=== PATIENT | female | born 2000 | race Caucasian/White ===

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

== ENCOUNTER 2020-08-20 16:08 | Emergency (ER) | payer MEDICAID ==
[~2020-08-20] VITALS: Ht 157.5 cm; Wt 61.8 kg
[~2020-08-20 16:08] MED LIST changes: -CEPH500C5 PO; +CLIN150C8 PO
[2020-08-20 16:51] VITALS: BP_SYST 126
[2020-08-20] MEDS ORDERED: CEPH500C5 PO (17:08)
[2020-08-20] MEDS ORDERED: SULF1TAB49 PO (17:08)
[2020-08-20] MEDS ORDERED: L.AC1CAP6 PO (17:08)
== END 2020-08-20 17:18 | disposition home or self-care (01) ==
LOC: ER 16:08
DX: I89.1 Lymphangitis (principal); F15.10 Other stimulant abuse, uncomplicated; Z88.2 Allergy status to sulfonamides; Z88.8 Allergy status to other drugs, medicaments and biological substances; Z88.1 Allergy status to other antibiotic agents; Z91.010 Allergy to peanuts
CPT/HCPCS: 99283

== ENCOUNTER 2021-05-09 22:57 | Emergency (ER) | payer MEDICAID ==
[~2021-05-09] VITALS: Ht 157.5 cm; Wt 59.1 kg
[~2021-05-09 22:57] MED LIST changes: +CEPH-585 PO; +L.AC1CAP6 PO
[2021-05-09 23:01] VITALS: BP 125/78
[2021-05-09] MEDS ORDERED: SULF1TAB49 PO (23:29)
== END 2021-05-09 23:36 | disposition home or self-care (01) ==
LOC: ER 22:57
DX: L73.2 Hidradenitis suppurativa (principal); M79.621 Pain in right upper arm; F15.90 Other stimulant use, unspecified, uncomplicated; Z91.010 Allergy to peanuts; Z79.2 Long term (current) use of antibiotics; Z79.899 Other long term (current) drug therapy
CPT/HCPCS: 99283

== ENCOUNTER 2021-06-02 16:51 | Emergency (ER) | payer MEDICAID ==
[~2021-06-02] VITALS: Ht 157.5 cm; Wt 59.1 kg
[2021-06-02 16:57] VITALS: BP 130/81
== END 2021-06-02 17:33 | disposition home or self-care (01) ==
LOC: ER 16:51
DX: H00.011 Hordeolum externum right upper eyelid (principal); F15.90 Other stimulant use, unspecified, uncomplicated; Z79.2 Long term (current) use of antibiotics; Z79.899 Other long term (current) drug therapy; Z91.010 Allergy to peanuts
CPT/HCPCS: 99281

== ENCOUNTER 2021-08-21 20:53 | Emergency (ER) | payer MEDICAID ==
[~2021-08-21] VITALS: Ht 157.5 cm; Wt 59.0 kg
[2021-08-21 21:21] VITALS: BP 122/75
== END 2021-08-22 01:19 | disposition left against medical advice (07) ==
LOC: ER 20:53
DX: K08.89 Other specified disorders of teeth and supporting structures (principal); Z53.21 Procedure and treatment not carried out due to patient leaving prior to being seen by health care provider

== ENCOUNTER 2022-02-06 19:56 | Emergency (ER) | payer MEDICAID ==
[~2022-02-06] VITALS: Ht 157.5 cm; Wt 59.0 kg
[~2022-02-06 19:56] MED LIST changes: -CEPH-585 PO
[2022-02-06 19:59] VITALS: BP 123/81
[2022-02-06] MEDS ORDERED: dexamethasone sod phosphate 10mg/ml inj IM STA (21:18)
[2022-02-06] MEDS ORDERED: amox tr/potassium clavulanate 875/125mg TAB PO ONE (21:20)
[2022-02-06] MEDS ORDERED: AMOX-117 PO (22:06)
== END 2022-02-06 22:21 | disposition home or self-care (01) ==
LOC: ER 19:57
DX: J03.90 Acute tonsillitis, unspecified (principal); F15.10 Other stimulant abuse, uncomplicated; Z91.010 Allergy to peanuts; Z79.899 Other long term (current) drug therapy
CPT/HCPCS: 96372; 99283; J1100

== ENCOUNTER 2022-06-28 23:48 | Emergency (ER) | payer MEDICAID ==
[2022-06-29 00:30] VITALS: BP 118/81
== END 2022-06-29 03:31 | disposition left against medical advice (07) ==
LOC: ER 23:48
DX: M79.604 Pain in right leg (principal); M79.605 Pain in left leg; Z53.21 Procedure and treatment not carried out due to patient leaving prior to being seen by health care provider

== ENCOUNTER 2025-10-22 11:58 | Emergency (ER) | payer MEDICAID ==
[~2025-10-22] VITALS: Ht 157.5 cm; Wt 72.0 kg
[~2025-10-22 11:58] MED LIST changes: +CLIN-214 PO; -CLIN150C8 PO
[2025-10-22 12:02] VITALS: BP 124/78; PULSE 106; RESP 18; TEMP 98.2; O2SAT 99
--- NOTE | 2025-10-22 12:18 | Physician Documentation ---
History of Present Illness ~ Chief Complaint: Sore Throat Stated Complaint: SORE THROAT Time Seen by MD: 12:11 Primary Medical Doctor: none Source: patient Mode of Arrival: POV Exam Limitations: no limitations HPI 25-year-old with sore throat no fever cough. Sore throat for approximately 2 days Medication Reconciliation Allergies: Coded Allergies: peanut (Verified Allergy, Unknown, 10/22/25) Scheduled Clindamycin HCl (Clindamycin HCl CAPSULE), 2 CAP PO TID L.acidoph & Paracasei,B.lactis (Probiotic), 1 CAP PO Q8H Ondansetron Hcl (Ondansetron Hcl), 4 MG PO Q4H Past Medical History Past Medical History: No Pertinent History Past Surgical History: no surgical history Alcohol Use: None Drug Use: methamphetamine Lives with: Family Lives In: Home Occupation: child Review of Systems All Other Systems at this time: Reviewed and Negative ENT: Reports: see HPI Physical Exam Vital Signs: RN Vital Signs have been reviewed: Yes, Temperature: 98.2, Source: Temporal, Heart Rate: 106, Respiratory Rate: 18, BP: 124/78, Pulse Oximetry: 99, Weight: 72.000 Oxygen Flow Rate: 0 Physical Exam General: Alert, no apparent distress. HEENT: moist mucous membranes. Anterior cervical lymphadenopathy +2 tonsillar swelling with exudate Neck: Full range of motion. Respiratory: No respiratory distress speaking in full sentences Chest: No accessory muscle use. Cardiovascular: Appears well perfused Neurologic: Oriented x4. Psychiatric: Normal mood and affect. Skin: Normal color, warm and dry. No edema, no ecchymosis. Progress Results/Orders Results/Orders Vital Signs 10/22/25 12:02 Temp 98.2 Pulse 106 Resp 18 B/P (MAP) 124/78 Pulse Ox 99 O2 Flow Rate 0 Medical Decision Making Additional information obtaine: N/A Findings Tonsillar swelling lymphadenopathy and exudate without cough. We will treat for sore throat Ear Diff. Dx: Considerations: Unlikely: Abrasion, Cerumen impaction, Foreign body, Otitis externa, Barotrauma, Otitis media, Perforation, Referred pain- dental, Referred pain-pharyngitis, Referred pain-sinusitis, Referred pain-TMJ syn., Tympanic Membrane Injury, Other Eye Diff. Dx: Considerations: Unlikely: Chalazoin, Conjuctivits-allergic, Conjuctivitis-bacterial, Conjuctivits-chlamydial, Conjuctivitis-viral, Corneal abrasion, Corneal laceration, Corneal ulceration, Foreign body-conjuctiva, Foreign body-corneal, Foreign body-intraocular, Foreign body-lid, Glaucoma, Globe rupture, Hordeolum, Iritis, Orbital cellulitis, Periobital cellulitis, Retinal artery occulsion, Retinal vein occlusion, Rust ring, Subconjunctival hem, Ultraviolet keratitis, Uveitis, Vitreous hemorrhage, Other Nose Diff. Dx: Considerations: Unlikely: Abrasion, Anterior nasal bleed, Avulsion, Contusion, Coagulopathy, Fracture-nasal bone, Fracture-septum, Hypertension, Laceration, Other, Posterior nasal bleed, Retained foreign body, Septal hematoma Tooth Diff. Dx: Considerations: Unlikely: Alveolar fracture, Aveolar osteitis, ANUG, Facial cellulitis, Periapical abscess, Periodontal abscess, Post- extraction bleeding, Pulpitis, Trigeminal neuralgia, Tooth-avulsion, Tooth- eruption, Tooth-fracture, Tooth-subluxation, Other Throat Diff Dx: Considerations: Include: Peritonsillar abscess, Peritonsillar cellulitis, Pharyngitis-diphtheria, Pharyngitis-strepococcal, Pharyngitis-viral Departure Time of Disposition: 12:18 Disposition: HOME / SELF CARE / HOMELESS Impression: Primary Impression: Sore throat Condition: Stable Discharge Instructions: Sore Throat Additional Instructions: Take antibiotics as prescribed follow up with primary care Referrals: NO PRIMARY CARE PROVIDER (PCP) Prescriptions Amox Tr/Potassium Clavulanate (Augmentin 875-125 Tablet) 1 Each Tablet 1 TAB PO Q12H for 7 Days, #14 TAB Prov: ELLY GARCIA NP 10/22/25 Education Educated: Patient Educated regarding: diagnosis, treatment, need for follow up Signature Scribe Signature: No scribe Attestation: The note accurately reflects work and decisions made by me.Elly Garcia - DANY 10/22/25 12:20 ELLY GARCIA NP Oct 22, 2025 12:18
[2025-10-22] MEDS ORDERED: AMOX-117 PO (12:20)
== END 2025-10-22 14:09 | disposition home or self-care (01) ==
LOC: ER 11:59
DX: J02.9 Acute pharyngitis, unspecified (principal); F15.90 Other stimulant use, unspecified, uncomplicated; Z91.010 Allergy to peanuts; Z79.899 Other long term (current) drug therapy
CPT/HCPCS: 99283